=== PATIENT | female | born 1960 | race Caucasian/White ===

== ENCOUNTER 2020-09-01 12:21 | Emergency (ER) | payer BC, SELFPAY ==
[2020-09-01] VITALS (10 sets, daily range): BP systolic 123–206; BP diastolic 47–87; PULSE 62–82; RESP 14–20; TEMP 36.7; O2SAT 97–99; BMI 30.4
--- NOTE | 2020-09-01 12:30 | XR_ITS ---
WS: [id number] Portable AP upright chest, 09/01/2020 Clinical Data: cp Comparison: Portable chest, 09/26/2016. Findings: No nodules, masses or effusions are seen. The heart is normal. The pulmonary vascularity is not increased. No pneumonia or pneumothorax is seen. The aortic arch and descending aorta show tortu osity. Monitor leads are on the chest wall. XR/XR chest 1V portable [id number] Impression: Atherosclerosis.
--- NOTE | 2020-09-01 12:48 | W.ED.CHESTPA ---
HPI - Chest Pain General: Chief Complaint: Chest Pain Stated Complaint: cp Time Seen by Provider: 09/01/20 12:25 History of Present Illness: HPI narrative: The patient is a 59-year-old female with past medical history left carotid endarterectomy 4 years ago after having strokelike symptoms. Today she comes to the ER complaining of left-sided chest pain radiating to her neck and shoulder since 5 PM yesterday. She says it feels like a dull ache that is worse with exertion. She says she also had a stress test around 4 years ago which was normal. She chronically has left-sided neck pain over the scar where her endarterectomy was performed. MD complaint: chest pain Timing of current episode: constant Onset: during rest and during exertion Pain location: left chest Pain radiation: neck and left shoulder Severity: moderate Quality: dull Exacerbating factors: exertion Associated symptoms: Reports no associated symptoms; Deny abdominal pain, dyspnea or palpitations Review of Systems General: Reports: 10 or more systems reviewed and unremarkable except in HPI and below Const: Denies: fatigue Eyes: Denies: change in vision, blurry vision or eye redness ENMT: Denies: throat pain, swelling of lips/tongue, ear or mastoid pain or nasal congestion Card: Reports: chest pain; Denies: palpitations, irregular heart rhythm, edema, dyspnea on exertion or orthopnea Resp: Denies: dyspnea, productive cough or non-productive cough GI: Denies: abdominal pain, diarrhea or GI cramping : Denies: flank pain, difficulty voiding, urinary frequency or urinary urgency Musc: Denies: neck pain, back pain, extremity pain, joint pain, joint redness, limited range of motion or muscle weakness Skin/Breast: Denies: rash, pruritus, erythema, skin pain or skin tenderness Neuro: Denies: headache(s), numbness in extremities, weakness in extremities, sensory changes, difficulty walking, dizziness, confusion or Slurred speech present Psych: Denies: anxiety or depression Endo: Denies: polyuria All/Imm: Denies: urticaria, throat swelling or tongue swelling PFSH ED PFSH: Social History (Updated 09/01/20 @ 12:31 by Kevin Romo RN) Smoking and tobacco status: never smoked Alcohol intake: never Substance/Drug Use: never Physical Exam Const: COMMON NORMALS: no acute distress, average body habitus, patient oriented x3, no limitations, healthy appearing, alert and well nourished GENERAL APPEARANCE: cooperative, comfortable, well kempt and well developed ORIENTATION/CONSCIOUSNESS: Yes awake, Yes oriented to person, Yes oriented to place and Yes oriented to time HENMT: COMMON NORMALS: normocephalic, external ears normal and Normal external nose present HEAD & SCALP: normal to inspection and normocephalic NOSE: Normal external nose present EXTERNAL EAR: Yes external ears normal MOUTH: Normal oral and palatal mucosa present THROAT: posterior oropharynx normal Eye: COMMON NORMALS: Equal, round and reactive pupils present and EOMs intact bilaterally GENERAL EYE: appearance normal, both eyes and all related structures PUPIL: Yes Equal, round and reactive pupils present Neck/C-Spine: COMMON NORMALS: full ROM, no lymphadenopathy, no meningeal signs and no JVD GENERAL: Yes normal visual inspection Lymph: LYMPHATIC: no lymphadenopathy noted Chest: COMMONS NORMALS: normal inspection of the chest and normal palpation of entire chest wall Resp: COMMON NORMALS: normal respiratory effort, No retractions, No use of accessory muscles, clear to auscultation bilaterally and percussion normal EFFORT & INSPECTION: Yes able to speak in complete sentences AUSCULTATION: clear to auscultation bilaterally PERCUSSION: percussion normal Cardio: COMMON NORMALS: no JVD, regular rate, regular rhythm, S1 normal heart sound present, S2 normal heart sound present and Peripheral pulses 2+ throughout RATE: regular rate RHYTHM: regular rhythm HEART SOUNDS: S1 normal heart sound present and S2 normal heart sound present PERIPHERAL PULSES: Peripheral pulses 2+ throughout GI: COMMON NORMALS: Normal to inspection, nondistended, normoactive bowel sounds present, Soft to palpation, non-tender and no masses INSPECTION: Yes normal to inspection PALPATION: Yes Soft to palpation : COMMON NORMALS: Yes no CVA tenderness BLADDER/KIDNEY EXAM: Yes no CVA tenderness Back/Pelvis: COMMON NORMALS: no CVA tenderness, thoracic and lumbar spine normal to inspection, no thoracic nor lumbar tenderness and thoraco-lumbar ROM normal Extremity: COMMON NORMALS: normal to inspection, full ROM, capillary refill normal, no joint enlargement and no pedal edema GENERAL: Yes normal exam except as noted Neuro: COMMON NORMALS: patient oriented x3, CN's II-XII intact bilaterally, moves all extremities, no focal motor deficits, no sensory deficits noted and gait normal SENSORIUM/ORIENTATION: Yes alert, Yes oriented to person, Yes oriented to place and Yes oriented to time MENINGEAL SIGNS: Yes no meningeal signs Psych: COMMON NORMALS: mental status grossly normal, Normal thought process present, cooperative, normal affect and speech normal APPEARANCE: Yes well kempt ATTITUDE: Yes calm SPEECH: Yes normal speech THOUGHT PROCESS: Normal thought process present Skin: COMMON NORMALS: no rashes or lesions noted GENERAL SKIN EXAM: no rashes or lesions noted Course Vital Signs: Vital signs: Vital Signs Temperature 98.1 F 09/01/20 12:26 Pulse Rate 71 09/01/20 19:11 Respiratory Rate 16 09/01/20 19:11 Blood Pressure 137/47 09/01/20 19:11 Pulse Oximetry 98 09/01/20 19:11 MDM - Chest Pain MDM Narrative: Medical decision making narrative: Patient came to the ER complaining of left-sided chest pain since 5 PM yesterday. Initial and 2-hour troponin is normal as well as 2 EKGs normal. Her blood pressure was severely elevated and she was given clonidine to reduce it. Blood pressure went from 2/3 over 70-137/47. Her symptoms resolved. Discussed with Dr. Chau who agrees with plan of care for outpatient stress test. Return to ER with any worsening chest pain and we will admit her for stress. ER with worsening symptoms at any time. Primary care Friday and bring blood pressure diary with her. I have placed a case management referral to help her get a cardiology appointment. Lab Data: Labs: Lab Results 09/01/20 09/01/20 09/01/20 Range/Units 12:50 12:50 12:50 WBC 9.2 (4.0-10.0) 10^3/ uL RBC 5.29 (4.1-5.3) 10^6/u L Hgb 14.9 (11.5-15.3) g/dL Hct 46.9 (37.0-47.0) % MCV 88.7 (81-99) fL MCH 28.2 (28.0-34.0) pg MCHC 31.8 (30.0-36.0) g/dL RDW 13.8 (12.1-15.1) % Plt Count 201 (130-400) 10^3/c mm MPV 12.4 H (7.4-10.4) fL Neut % (Auto) 52.0 % Lymph % (Auto) 31.3 % [place] % (Auto) 8.3 % Eos % (Auto) 7.0 % Baso % (Auto) 1.1 % Neut # (Auto) 4.79 (1.8-7.7) 10^3/u L Lymph # (Auto) 2.9 (0.8-4.8) 10^3/u L [place] # (Auto) 0.8 (0.2-0.9) 10^3/u L Eos # (Auto) 0.7 (0.0-0.8) 10^3/u L Baso # (Auto) 0.1 (0.0-0.1) 10^3/u L Nucleated RBC % (a uto) 0 % Nucleated RBCs # 0.0 /100WBC D-Dimer Cancelled Sodium 141 (136-145) mmol/L Potassium 4.4 (3.5-5.1) mmol/L Chloride 106 (98-107) mmol/L Carbon Dioxide 27 (22-29) mmol/L Anion Gap 12.4 (5-19) BUN 11 (6-20) mg/dL Creatinine 0.6 (0.5-0.9) mg/dL GFR Calculation 102.7 (90-130) mL/min Glucose 97 (65-115) mg/dL Calculated Osmolal ity 291 (285-295) mOsm/k g Calcium 9.2 (8.5-10.5) mg/dL Total Bilirubin 0.3 (0.15-1.2) mg/dL AST 19 (0-32) U/L ALT 17 (0-33) U/L Alkaline Phosphata se 77 (35-105) IU/L Troponin T Baselin e Troponin T 120 Min [place] (0-10) ng/L Delta Troponin T (0-10) ABS# NT-Pro-B Natriuret Pep 122 (0-125) pg/mL Total Protein 6.8 (6.6-8.7) g/dL Albumin 4.3 (3.5-5.2) g/dL Globulin 2.5 (1.3-4.6) g/dL Urine Color (Yellow) Urine Appearance (CLEAR) Urine pH (5-7) Ur Specific Gravit y (1.005-1.030) Urine Protein (Negative) Urine Glucose (UA) (Normal) Urine Ketones (Negative) Urine Blood (Negative) Urine Nitrate (Negative) Urine Bilirubin (Negative) Urine Urobilinogen (Negative) mg/dL Ur Leukocyte Jes ase (Negative) Urine RBC (0-2) /hpf Urine WBC (0-5) /hpf Ur Squamous Epith Cells (0-5) /hpf Amorphous Sediment Urine Bacteria (NONE) /hpf 09/01/20 09/01/20 09/01/20 Range/Units 12:50 13:22 13:22 WBC (4.0-10.0) 10^3/ uL RBC (4.1-5.3) 10^6/u L Hgb (11.5-15.3) g/dL Hct (37.0-47.0) % MCV (81-99) fL MCH (28.0-34.0) pg MCHC (30.0-36.0) g/dL RDW (12.1-15.1) % Plt Count (130-400) 10^3/c mm MPV (7.4-10.4) fL Neut % (Auto) % Lymph % (Auto) % [place] % (Auto) % Eos % (Auto) % Baso % (Auto) % Neut # (Auto) (1.8-7.7) 10^3/u L Lymph # (Auto) (0.8-4.8) 10^3/u L [place] # (Auto) (0.2-0.9) 10^3/u L Eos # (Auto) (0.0-0.8) 10^3/u L Baso # (Auto) (0.0-0.1) 10^3/u L Nucleated RBC % (a uto) % Nucleated RBCs # /100WBC D-Dimer 0.95 H Sodium (136-145) mmol/L Potassium (3.5-5.1) mmol/L Chloride (98-107) mmol/L Carbon Dioxide (22-29) mmol/L Anion Gap (5-19) BUN (6-20) mg/dL Creatinine (0.5-0.9) mg/dL GFR Calculation (90-130) mL/min Glucose (65-115) mg/dL Calculated Osmolal ity (285-295) mOsm/k g Calcium (8.5-10.5) mg/dL Total Bilirubin (0.15-1.2) mg/dL AST (0-32) U/L ALT (0-33) U/L Alkaline Phosphata se (35-105) IU/L Troponin T Baselin e Cancelled 7 Troponin T 120 Min [place] (0-10) ng/L Delta Troponin T (0-10) ABS# NT-Pro-B Natriuret Pep (0-125) pg/mL Total Protein (6.6-8.7) g/dL Albumin (3.5-5.2) g/dL Globulin (1.3-4.6) g/dL Urine Color (Yellow) Urine Appearance (CLEAR) Urine pH (5-7) Ur Specific Gravit y (1.005-1.030) Urine Protein (Negative) Urine Glucose (UA) (Normal) Urine Ketones (Negative) Urine Blood (Negative) Urine Nitrate (Negative) Urine Bilirubin (Negative) Urine Urobilinogen (Negative) mg/dL Ur Leukocyte Jes ase (Negative) Urine RBC (0-2) /hpf Urine WBC (0-5) /hpf Ur Squamous Epith Cells (0-5) /hpf Amorphous Sediment Urine Bacteria (NONE) /hpf 09/01/20 09/01/20 Range/Units 13:45 16:02 WBC (4.0-10.0) 10^3/ uL RBC (4.1-5.3) 10^6/u L Hgb (11.5-15.3) g/dL Hct (37.0-47.0) % MCV (81-99) fL MCH (28.0-34.0) pg MCHC (30.0-36.0) g/dL RDW (12.1-15.1) % Plt Count (130-400) 10^3/c mm MPV (7.4-10.4) fL Neut % (Auto) % Lymph % (Auto) % [place] % (Auto) % Eos % (Auto) % Baso % (Auto) % Neut # (Auto) (1.8-7.7) 10^3/u L Lymph # (Auto) (0.8-4.8) 10^3/u L [place] # (Auto) (0.2-0.9) 10^3/u L Eos # (Auto) (0.0-0.8) 10^3/u L Baso # (Auto) (0.0-0.1) 10^3/u L Nucleated RBC % (a uto) % Nucleated RBCs # /100WBC D-Dimer Sodium (136-145) mmol/L Potassium (3.5-5.1) mmol/L Chloride (98-107) mmol/L Carbon Dioxide (22-29) mmol/L Anion Gap (5-19) BUN (6-20) mg/dL Creatinine (0.5-0.9) mg/dL GFR Calculation (90-130) mL/min Glucose (65-115) mg/dL Calculated Osmolal ity (285-295) mOsm/k g Calcium (8.5-10.5) mg/dL Total Bilirubin (0.15-1.2) mg/dL AST (0-32) U/L ALT (0-33) U/L Alkaline Phosphata se (35-105) IU/L Troponin T Baselin e Troponin T 120 Min [place] 6.00 (0-10) ng/L Delta Troponin T -1.00 L (0-10) ABS# NT-Pro-B Natriuret Pep (0-125) pg/mL Total Protein (6.6-8.7) g/dL Albumin (3.5-5.2) g/dL Globulin (1.3-4.6) g/dL Urine Color Straw (Yellow) Urine Appearance Sl hazy (CLEAR) Urine pH 5 (5-7) Ur Specific Gravit y 1.015 (1.005-1.030) Urine Protein Neg (Negative) Urine Glucose (UA) Norm (Normal) Urine Ketones Negative (Negative) Urine Blood 1+ H (Negative) Urine Nitrate Negative (Negative) Urine Bilirubin Neg (Negative) Urine Urobilinogen Norm (Negative) mg/dL Ur Leukocyte Jes ase 2+ H (Negative) Urine RBC 10-15 H (0-2) /hpf Urine WBC 15-25 H (0-5) /hpf Ur Squamous Epith Cells 15-25 H (0-5) /hpf Amorphous Sediment Not Reportable Urine Bacteria 1+ H (NONE) /hpf Discharge Plan Discharge Patient Disposition: Home Clinical Impression: Chest pain, UTI (urinary tract infection) Condition: Stable Prescriptions: New cephalexin 500 mg capsule 500 mg PO BID 7 Days Qty: 14 RF: 0 amlodipine 10 mg tablet 10 mg PO DAILY Qty: 20 RF: 0 No Action No Known Home Medications RF: 0 Discharge Orders: Discharge ED (Routine); Ordered 09/01/20 Ordered By: Juni Sosa Referrals: Alisson Lopez C UNIX DEVELOPER [Primary Care Provider] - Discharge Diet: Advance as tolerated Discharge Activity: Resume usual activity Patient Instructions: Chest Pain (ED), Urinary Tract Infection in Women (ED), Opioid Safety Activity Restrictions/Additional Instructions: You are now free from chest pain now that your blood pressure has been lowered. Please take the amlodipine and write a blood pressure diary and bring them to your primary care physician Friday. Return to the ER with any symptoms of chest pain and we will admit you for a stress test. I have placed a case management referral to help you get an appointment with a angle shear set up operator for stress test. Return to the ER at anytime with worsening symptoms Coding Level of Care Code ED Information Systems Specialist for Alyx Fwbrayan Exam Comprehensive
[2020-09-01] MEDS: aspirin 81 mg Chew Tablet 324 MG PO (12:57)
[2020-09-01 13:00] LABS: Basophils # 0.1 10^3/uL (0.0-0.1); Basophils % 1.1 %; Eosinophils # 0.7 10^3/uL (0.0-0.8); Hematocrit 46.9 % (37.0-47.0); Hemoglobin 14.9 g/dL (11.5-15.3); Lymphocytes # 2.9 10^3/uL (0.8-4.8); Lymphocytes % 31.3 %; Mean Corpuscular HGB Conc 31.8 g/dL (30.0-36.0); Mean Corpuscular Hemoglobin 28.2 pg (28.0-34.0); Mean Corpuscular Volume 88.7 fL (81-99); Mean Platelet Volume 12.4 fL (7.4-10.4); Monocytes # 0.8 10^3/uL (0.2-0.9); Monocytes % 8.3 %; Neutrophils # 4.79 10^3/uL (1.8-7.7); Nucleated Red Blood Cells % 0 %; Platelet Count 201 10^3/cmm (130-400); Red Blood Count 5.29 10^6/uL (4.1-5.3); Red Cell Distribution Width 13.8 % (12.1-15.1); White Blood Count 9.2 10^3/uL (4.0-10.0)
[2020-09-01] MEDS: nitroglycerin 0.4 mg sublingual Tablet SUBLINGUAL (13:01)
[2020-09-01 13:30] LABS: Alanine Aminotransferase 17 U/L (0-33); Albumin Level 4.3 g/dL (3.5-5.2); Alkaline Phosphatase 77 IU/L (35-105); Blood Urea Nitrogen 11 mg/dL (6-20); Calcium 9.2 mg/dL (8.5-10.5); Carbon Dioxide 27 mmol/L (22-29); Chloride 106 mmol/L (98-107); Globulin 2.5 g/dL (1.3-4.6); Glomerular Filtration Rate 102.7 mL/min (90-130); Glucose 97 mg/dL (65-115); NT Pro B Type Natriuretic Pept 122 pg/mL (0-125); Osmolality Calculated 291 mOsm/kg (285-295); Sodium 141 mmol/L (136-145); Total Bilirubin 0.3 mg/dL (0.15-1.2); Total Protein 6.8 g/dL (6.6-8.7)
[2020-09-01 13:39] LABS: Anion Gap 12.4 (5-19); Aspartate Amino Transferase 19 U/L (0-32); Potassium 4.4 mmol/L (3.5-5.1)
[2020-09-01 13:41] LABS: D Dimer 0.95 ug/mIFEU (0-0.59)
[2020-09-01 13:45] LABS: Troponin(5th) Baseline 7 ng/L (0-10)
[2020-09-01 14:01] LABS: Add Urine Culture? No; Add Urine Microscopic? YES; Bacteria Urine 1+ /hpf; Bilirubin Urine Neg (Negative); Blood Urine 1+ (Negative); Glucose Urine UA Norm (Normal); Ketones Urine Negative (Negative); Leukocyte Esterase Urine 2+ (Negative); Nitrate Urine Negative (Negative); Protein Urine Neg (Negative); Specific Gravity, Urine 1.015 (1.005-1.030); Squamous Epithelial Cell Urine 15-25 /hpf (0-5); Urine Appearance SL Hazy (CLEAR); Urine Color Straw (Yellow); Urobilinogen Urine Norm (Negative); WBC Urine 15-25 /hpf (0-5); pH Urine 5 (5-7)
--- NOTE | 2020-09-01 14:01 | CTR_ITS ---
PROCEDURE INFORMATION: Exam: CTA Chest With Contrast Exam date and time: 09/01/2020 2:09 PM Age: 59 years old Clinical indication: Pain and abnormal findings; Abnormal diagnostic tests; Elevated d-dimer; Left-sided chest pain; Prior surgery; Surgery type: Left carotid; Patient HX: Left sided chest pain radiating to left neck and shoulder; Additional info: Chest pain. Elevated d dimer TECHNIQUE: Imaging protocol: Computed tomographic angiography of the chest with contrast. 3D rendering (Not supervised by radiologist): MIP and/or 3D reconstructed images were created by the technologist. Radiation optimization: All CT scans at this facility use at least one of these dose optimization techniques: automated exposure control; mA and/or kV adjustment per patient size (includes targeted exams where dose is matched to clinical indication); or iterative reconstruction. Contrast material: OMNI 350; Contrast volume: 82 ml; Contrast route: INTRAVENOUS (IV); COMPARISON: CR XR chest 1V portable [id number] 09/01/2020 12:36 PM RADIATION DOSE METRICS: Total DLP (mGy-cm): 583.79 FINDINGS: Pulmonary arteries: No pulmonary embolus or aortic dissection. Aorta: Unremarkable. No aortic aneurysm. No aortic dissection. Lungs: Unremarkable. No consolidation. No masses. Pleural spaces: Unremarkable. No pneumothorax. No pleural effusion. Heart: Unremarkable. No cardiomegaly. No pericardial effusion. Lymph nodes: Calcified left hilar nodes and/or mediastinal nodes and/or lung granulomas consistent with old granulomatous disease. Liver: Single hepatic cyst measuring > 1.0 cm. Spleen: One or more accessory splenules. Bones/joints: Unremarkable. No acute fracture. Soft tissues: Unremarkable. Other findings: Examination is limited secondary to motion artifact. CT/CT angio chest PE protcl [id number] IMPRESSION: No pulmonary embolus or aortic dissection. Radiation Dose CTDIVOL = (mGy): DLP = 583.79 (mGy-cm)
[2020-09-01] MEDS: iohexol 350 mg/mL 100 mL Btl IV (14:16)
--- NOTE | 2020-09-01 14:30 | ECG_ITS ---
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 Measurements Intervals [place] Rate: 60 P: 74 OR: 151 QRS: 60 QRSD: 102 T: 78 QT: 411 QTc: 411 Interpretive Statements SINUS RHYTHM POSSIBLE RIGHT VENTRICULAR CONDUCTION DELAY [RSR (QR) IN V1/V2] NONSPECIFIC T-WAVE ABNORMALITY Compared to ECG 09/26/2016 04:53:19 T-wave abnormality now present Sinus bradycardia no longer present Electronically Signed On 09-01-2020 21:10:12 CDT by Smita Nayak M.D. [id number] f
[2020-09-01] MEDS: hyDRALAzine 20 mg/mL INJ 1 mL 10 MG IVP (16:14)
[2020-09-01] MEDS: cloNIDine 0.1 mg Tablet 0.2 MG PO (18:06)
--- NOTE | 2020-09-01 18:30 | ECG_ITS ---
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 Measurements Intervals [place] Rate: 64 P: 50 HI: 151 QRS: 10 QRSD: 97 T: 64 QT: 407 QTc: 422 Interpretive Statements SINUS RHYTHM POSSIBLE RIGHT VENTRICULAR CONDUCTION DELAY [RSR (QR) IN V1/V2] MODERATE ST DEPRESSION [0.05+ mV ST DEPRESSION] Compared to ECG 09/01/2020 14:44:25 ST (T wave) deviation now present T-wave abnormality no longer present Electronically Signed On 09-01-2020 21:10:27 CDT by Smita Nayak M.D. [email or web address]/[id number] f
[2020-09-01] MEDS: amlodipine 5 mg Tablet PO (19:49)
[2020-09-01] MEDS: cephALEXin 500 mg Capsule PO (19:49)
--- NOTE | 2020-09-04 15:06 | DCPLANNER ---
certified orthotist practice manager had message to schedule a follow up appointment for patient with heart care. certified orthotist practice manager called heart care, spoke with Maisha. certified orthotist practice manager gave clinic patients information, a follow up appointment was scheduled for August at 1:[address] Chavez. certified orthotist practice manager called patient, spoke with patients , gave him the appointment information.
--- NOTE | 2020-11-22 07:45 | DCPLANNER ---
Patient had a follow up appointment scheduled for 09.14.[address] Chau at [facility] - patient did attend appointment.
== END 2020-09-01 19:52 | disposition home or self-care (01) ==
PROVIDERS: Emergency Provider Family Medicine; PCP Nurse Practitioner
DX: R07.9 Chest pain, unspecified (principal); N39.0 Urinary tract infection, site not specified
CPT/HCPCS: 36415; 71045; 71275; 80053; 81001; 83880; 84484; 85025; 85378; 93005; 96374; 99284; J0360; Q9967

== ENCOUNTER 2020-10-18 09:08 | Outpatient (CLI) | payer BC, SELFPAY ==
--- NOTE | 2020-10-18 09:30 | USCV_ITS ---
Juanis Patel Age: 59 Gender: F : 1960 Exam Date: 10/18/2020 09:53 Ordering Phys: Nona Chau MD ([email or web address]) Technologist: Exam Location[place] [facility] [place]: HISTORY: varicose veins PROCEDURES: Bilateral duplex Venous Insufficiency study of the Deep and Superficial systems was carried out according to normal protocol with the patient in supine positon for deep system and dependent position for the superficial system. FINDINGS: All deep veins demonstrated compressibility without evidence of intraluminal thrombus or increased echogenicity. Spectral analysis of Doppler signals demonstrates normal response to compression maneuvers indicating patency without obstruction. Reflux determinations were made with the patient in the dependent position, the weight being on the contralateral leg. significant reflux in right GSV system. Please consult with ladle liner before scheduling for ablation due to small diameter vessels. CONCLUSIONS 1. No evidence of DVT in the above-mentioned identifiable veins. 2. Significant venous reflux of greater than 500 ms were noted at the right distal and below-knee greater saphenous vein segments. The venous segments at these levels were found to be 0.5 and 0.4 cm in diameter and at a depth of greater than 1 cm from the surface. 3. No significant venous reflux were noted on the left side. Dr Smita Nayak MD [facility] (Electronically Signed) Final Date: 19 October 2020 08:44 S
== END 2020-10-18 09:09 | disposition home or self-care (01) ==
LOC: RAD 09:12
PROVIDERS: PCP Nurse Practitioner; Visit Provider Internal Medicine Cardiovascular Disease
DX: I87.2 Venous insufficiency (chronic) (peripheral) (principal); I83.93 Asymptomatic varicose veins of bilateral lower extremities
CPT/HCPCS: 93970

== ENCOUNTER 2020-10-31 08:09 | Outpatient (CLI) | payer BC, SELFPAY ==
[2020-10-31 08:31] VITALS: BMI 29.6
--- NOTE | 2020-10-31 08:32 | NMCV_ITS ---
NM adri perf SPECT r/s* [id number] Juanis Patel Age: 59 Gender: F : 1960 Exam Date: 10/31/2020 09:33 Ordering Phys: Nona hCau MD ([email or web address]) Technologist: PROMISE Engel Exam Location: [facility] Indications: CHEST PAIN STRESS TEST [facility] IMAGE PROTOCOL Rest/Stress 1 Exercise Day Radiopharmaceutical Dose (mCi) Administration Site Administered by Rest: Tc-99m 10.8 IV PROMISE Azar Sestamibi Stress:Tc-99m 32.3 IV PROMISE Azar Sestamibi Rest: 31-Oct-2020 60 Discovery 630 Stress: 31-Oct-2020 15 Discovery 630 Radiopharmaceutical was injected at 85 % maximum heart rate. Images obtained in supine and prone position. SPECT RESULTS Technical Quality: Excellent Raw Data Analysis: Normal Image Corrections: No attenuation or motion correction applied Summed Stress Score: 0 Summed Rest Score: 0 Summed Difference Score: 0 PERFUSION FINDINGS Very small sized perfusion abnormality of mild severity of apical lateral wall with improved tracer uptake on stress images. FUNCTIONAL RESULTS (calculated via Gated SPECT) Stress Image LV EF (%): 86 Stress EDV (mL):83 TID: 0.89 Stress ESV (mL):12 FUNCTIONAL FINDINGS: The left ventricle is normal in size. Transient Ischemia Dilatation of 0.89. There is hyperdynamic left ventricular systolic function, LVEF=86%. This is likely overestimated due to small left ventricle cavity. There is normal left ventricular wall thickening with no regional wall motion abnormality. Normal end-diastolic end-systolic volumes IMPRESSIONS 1. Myocardial perfusion imaging is normal. Attenuation artifact noted in apical lateral wall. 2. Overall left ventricular systolic function is normal without regional wall motion abnormalities. 3. There is hyperdynamic left ventricular systolic function, LVEF=86%. 4. Positive EKG response to treadmill exercise. Refer to separate report for details. 5. No prior similar studies to compare. Nona Chau MD (Electronically Signed) Final Date: 03 November 2020 18:30 S
--- NOTE | 2020-10-31 08:32 | ECG_ITS ---
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 Interpretive Statements NAME OF STUDY: EXERCISE SESTAMIBI STRESS TEST INDICATION: Chest Pain Baseline blood pressure of 150/82 mm Hg, heart rate 58 beats per minute and oxygen saturation of 94%. EKG showed normal sinus rhythm, normal axis with nonspecific ST depression. The patient exercised for 5 minutes 1 second on a standard Thony protocol. Patient attained a maximum heart rate of 148 beats per minute(91% of the maximum predicted heart rate) with a blood pressure at the peak exercise of 238/95 mm Hg. EKG 2 minutes 30 seconds into exercise showed 1 to [address] depression in inferolateral leads (lead II, 3, aVF, V3 to V6) and [address] elevation in lead V1 and aVR. The EKG at the peak exercise revealed sinus tachycardia with 2-2 and half mm horizontal to downsloping ST depression in inferolateral leads and [address] elevation in V1 and aVR. Patient developed shortness of breath 2 minutes 30 seconds (stage I) into exercise and chest pain 4 minutes 30 seconds (stage II) into exercise. During the recovery phase, [address] depression persisted late in recovery in the lead II, 3, aVF V4 to V6. Blood pressure at the end of the recovery phase was 167/83 mm Hg with a heart rate of 88 beats per minute and oxygen saturation of 98%. CONCLUSION: 1. Positive EKG response to treadmill exercise. 2 to 1/2 mm horizontal to downsloping ST depression in inferolateral leads. 2. No exercise-induced chest pain or cardiac arrhythmia 3. Good exercise tolerance, attained a maximum of 7 METs. Maximum VO2 of 24.5 mL/kg/min. 4. Baseline hypertension with normal response to exercise. 5. Perfusion scan will be documented separately. Electronically Signed On 11-03-2020 18:24:09 CDT by Nona Chau M.D. [email or web address]/store/[id number]
[2020-10-31 11:10] VITALS: BP 149/83; PULSE 88
== END 2020-10-31 08:10 | disposition home or self-care (01) ==
LOC: CDL 08:11
PROVIDERS: PCP Nurse Practitioner; Visit Provider Internal Medicine Cardiovascular Disease
DX: R07.9 Chest pain, unspecified (principal); I10 Essential (primary) hypertension
CPT/HCPCS: 78452; 93017; A9500

== ENCOUNTER → 2021-02-01 09:19 | Outpatient (BNVA) | payer BC, SELFPAY | PROVIDERS: PCP Nurse Practitioner; Referring Provider Internal Medicine Cardiovascular Disease; Visit Provider Internal Medicine Cardiovascular Disease | DX: Z01.818 Encounter for other preprocedural examination (principal); R94.39 Abnormal result of other cardiovascular function study; Z20.822 Contact with and (suspected) exposure to COVID-19 | CPT/HCPCS: 80048; 85025; 85610; 87635 ==

== ENCOUNTER 2021-02-06 07:36 | Outpatient (CLI) | payer BC, SELFPAY ==
[2021-02-06] VITALS (11 sets, daily range): BP systolic 122–173; BP diastolic 70–104; PULSE 57–70; RESP 15–20; TEMP 36.8; O2SAT 94–98; BMI 33.0
--- NOTE | 2021-02-06 08:00 | XACV_ITS ---
Ht: 173 cm Wt: 98 kg BSA: 2.21 m2 Gender: Female : 1960 Any Known Allergies: No known allergies Exam Priority: Routine Procedure(s): Procedure Description: Diagnostic procedure Procedure Description: Left Heart Catheterization Procedure Description: Left ventriculography Procedure Description: Coronary Angiography Diagnostic Cath Status: Elective Diagnostic Findings * No disease noted in the Left Main, Left Anterior Descending, Right, or Circumflex coronary arteries. * Coronary angiography shows right dominance. Conclusions 1. No disease noted in the Left Main, Left Anterior Descending, Right, or Circumflex coronary arteries. Recommendations * Continue current medical management and risk factor modification. Ventriculography Ejection Fraction: 65.0 % Left Ventriculography Findings: * Normal left ventricular ejection fraction 65%. Pressures Phase:Rest AO : 150 / 80 ( 106 ) @ 8:43:00 AM 149 / 71 ( 103 ) @ 8:48:00 AM 134 / 74 ( 99 ) @ 8:51:00 AM 151 / 71 ( 103 ) @ 8:58:00 AM 151 / 71 ( 104 ) @ 8:58:00 AM LV : 171 / -8 / 19 @ 8:57:00 AM 165 / 30 / 51 @ 8:58:00 AM 165 / 8 / 26 @ 8:58:00 AM Valves Phase:DefaultPhase AV : 13.0 @ 10:06:14 AM AV Mean Gradient: 17.0 @ 10:06:14 AM Clinical Evaluation EBL: 5mL-10mL Procedural Details Procedure Consent Obtained. Pre-Procedure Time Out. Identified patient by full name and date of as verbalized by the patient/guarantor. Does the consent match the physician's order: Yes. Accurate & Complete Informed Consent: Yes. Inpatient/Outpatient History & Physical on Chart: Yes. If H&P is completed, is and addenduem needed: No; If yes, is the addendum complete: N/A. Visualize and Verify Site with Patient/Guarantor: N/A. Relevant Radiology Images available: N/A. Pre-op teaching completed and patient verbalized understanding. The risks, benefits, and alternatives of sedation and/or procedure were discussed by physician. The patient agrees to continue. Procedure started. [facility] Clinical Fraility Score: 3: Managing Well. Tree Wrapper Indications: Other abnormal stress test. Chest Pain Symptom Assessment: Typical Angina Symptoms. Cardiovascular Instability: No. Correct patient, site and procedure confirmed by cath team. PERRLA. Strong, equal hand medical professionals bilaterally. Lungs clear x 5 lobes. IV Site on Arrival: 20 gauge in the right anticubital. IV Fluids: 0.9% NaCl at KVO. 0 mL infused prior to quality assurance qa lab analyst. Pre Procedural Pulses: bilateral dorsalis pedis was 3+. Pre Procedural Pulses: bilateral posterior tibial was 1+. Pre Procedural Pulses: bilateral radial was 3+. Oxygen started at 2liters/min via nasal canula. Baseline sample Acquired. HR: 60 BPM. right radial was prepped with chloroprep then draped in the usual sterile fashion. right groin was prepped with chloroprep then draped in the usual sterile fashion. Physician arrived. Equipment: 6F - Radial. Physician scrubbed in. Immediate Pre-Procedure Time Out. Correct Patient: Yes; Correct Procedure: Yes; Correct Site: Yes; Correct Patient Position: Yes; Correct Supplies: Yes; Dried Flammable Prep: Yes; Blood Products Available: N/A;. Lidocaine 1% infiltrated to the right radial. Arterial access obtained. A 5 palestinian TIG catheter in over wire. Multiple views taken of left coronary artery. Catheter redirected to the RCA. Multiple views taken of right coronary artery. Catheter removed over the exchange wire. A 5 palestinian Angled Pig catheter in over wire. EDP Sample taken: LV 171/-9,19; HR: 58 BPM; SpO2: 99%. LV gram performed in GARCIA @ 10 mL/second for a total of 30 mL. EDP Sample taken: LV 165/30,51; HR: 58 BPM; SpO2: 99%. Pullback taken: LV 165/8,26; AO 151/71(103); Mean: 17mmHg, Peak to Peak: 13mmHg, SEP: 18sec/min; HR: 55 BPM; SpO2: 99%. Catheter removed over the exchange wire. Physician scrubbed out. A TR Band was successful obtaining hemostatsis at the Right Radial artery insertion site. TR band placed. Hemostasis obtained. Post Procedure: Pulses reassessed and unchanged. PERRLA. Strong, equal hand medical professionals bilaterally. No VTE prophylaxis required. Medication's Wasted: Lidocaine 1% = 10 mL. Medication's Wasted: Nitro = 49.8 mg. Medication's Wasted: Heparin = 1000 units. Medication's Wasted: Other = fentanyl 50 mcg. Total IV fluids: 40 mL. Contrast type used: Omnipaque 300 mgI/mL, 500 mL bottle. Post-op diagnosis: normal coronaries. Complications: none. Estimated blood loss: 5mL-10mL. Procedure completed. Patient transferred by wheelchair to CPRU. Vital chart was stopped. Access Site Site: Right Radial artery Sheath Size: 6 Fr Hemostasis Method: TR Band Hemostasis Success: Successful Procedure Medications Start: 9:31 AM Stop: 9:31 AM Medication: Versed Amount: 1 mg Route: I.V. Start: 9:31 AM Stop: 9:31 AM Medication: Fentanyl Amount: 50 mcg Route: I.V. Start: 9:40 AM Stop: 9:40 AM Medication: Nitrogylcerin Amount: 200 mcg Route: I.A. Start: 9:41 AM Stop: 9:41 AM Medication: Versed Amount: 1 mg Route: I.V. Start: 9:43 AM Stop: 9:43 AM Medication: Heparin Amount: 5000 units Route: I.V. I, the attending physician, have reviewed and verified all procedure medications. Yes, all medications given per verbal order History/Risk Factors Hypertension: Yes Dyslipidemia: No Peripheral Arterial Disease (PAD): No Myocardial Infarction (CT): No Obesity: No Renal Disease: No Tobacco Use: Never Prior Interventions PCI: Yes CABG: No Valve Surgery: No Report Signatures Finalized by Elyssa Yates MD on 02/19/2021 06:56 PM
[2021-02-06] MEDS: diphenhydrAMINE 50 mg Capsule PO (08:22)
--- NOTE | 2021-02-06 09:23 | P.HP_ITS ---
Same Day Surgery H&P Indication for Procedure/HPI DATE OF PROCEDURE: February 06, 2021 CHIEF COMPLAINT/INDICATIONFOR SURGICAL PROCEDURE: Chest pain with abnormal stress test PREOP DIAGNOSIS: Chest pain with abnormal stress test PLANNED PROCEDRUE: Operation Date: 02/06/21 08:30 Proposed Procedures p Cardiac Catheterization(Left) - Elyssa Yates MD 60-year-old female past medical history significant for hypertension hyperlipidemia for chest pain radiating to left arm underwent exercise nuclear stress test nuclear portion of stress test was not suggestive of ischemia however EKG segment showed to have millimeter ST depression in the inferolateral leads. Since she has equivocal stress test and because of the fact she co ntinues to have symptoms Dr. Chau her printed circuit designer recommended to further assess patient with left heart cath. We agree with recommendation. It is the reason she is here today. Patient is a Denominational therefore she refused any transfusion. I have detailed discussion with the patient regarding all risk benefit and alternative for the procedure she understand the risks for major minor bleed hematoma infection bruising arrhythmia stroke urgent emergent bypass surgery vascular surgery and vascular scenario . She would like to proceed with it. Patient is already taking clopidogrel. She is a good candidate for dual antiplatelet therapy. She denies any bleeding per rectum or hematemesis. Medications/Allergies* Home Medications Medication Instructions Recorded Confirmed Type multivitamin 1 tab PO DAILY 09/14/20 02/05/21 History clonidine HCl 0.1 mg tablet 0.1 mg PO BID PRN 11/14/20 02/05/21 History Allergies/Adverse Reactions Allergy/AdvReac Type Severity Reaction Status Date / Time No Known Allergies Allergy Verified 11/29/20 10:15 Current Medications: Generic Name Dose Route Start Last Admin Trade Name Freq PRN Reason Stop Dose Admin Sodium Chloride 1,000 mls @ 50 mls/hr 02/06/21 08:00 02/06/21 08:22 Sodium Chloride 0.9% IV 02/07/21 03:59 Not Given .Q20H ONE Pertinent History/Comorbid Conditions* Medical History (Updated 11/14/20 @ 22:14 by Nona Chau MD) Carotid artery stenosis, asymptomatic HTN (hypertension) Surgical History (Updated 09/14/20 @ 14:18 by Nona Chau MD) H/O carotid endarterectomy Status post cervical polyp removal Family History (Updated 09/14/20 @ 13:58 by Johnna Davis RN) Diabetes Sister CAD (coronary artery disease) Mother Family/Other Cancer Stroke Father Brother Social History Smoking and tobacco status: never smoked Second hand smoke exposure: No Alcohol intake: never Desire information about alcohol rehabilitation?: No Desire information about substance/drug rehabilitation?: No Pertinent Exam Findings alert, oriented x 3, clear to auscultation bilaterally and operative site marked Conscious Sedation Assessment AIRWAY EVAL/ANESTHESIA PLAN: ASA II, Risks, benefits & alternatives of sedation and/or procedure discussed and Patient agrees to continue as planned Recommendations Surgery/Procedure today Coding Level of Care Code Acute Demonstrator [employer]iances for Alyx Khanna
--- NOTE | 2021-02-06 10:00 | PC.NURSE ---
recovery recvd pt from cardiac cath lab radiology technologist post diagnostic only [facility]. pt complains of no pain. pt alert and oriented x3. tr band in place with distal pulse palpable. pt educated on restrictions of right wrist with sister at bedside. will continue to educate throughout recovery. both acknowledged understanding. pt placed on pvc monitor and will be monitored per protocol.
== END 2021-02-06 12:55 | disposition home or self-care (01) ==
PROVIDERS: PCP Nurse Practitioner; Visit Provider Internal Medicine Cardiovascular Disease
DX: R07.9 Chest pain, unspecified (principal); R94.39 Abnormal result of other cardiovascular function study; I10 Essential (primary) hypertension; E78.5 Hyperlipidemia, unspecified; Z82.49 Family history of ischemic heart disease and other diseases of the circulatory system; Z82.3 Family history of stroke
CPT/HCPCS: 36415; 93452; C1769; C1887; C1894; J1644; J2250; J3010; J3490; J7030; Q0163; Q9967

== ENCOUNTER → 2021-02-14 14:44 | Outpatient (BNVA) | payer BC, SELFPAY | PROVIDERS: PCP Nurse Practitioner; Visit Provider Internal Medicine Cardiovascular Disease | DX: I65.29 Occlusion and stenosis of unspecified carotid artery (principal); I10 Essential (primary) hypertension; E78.5 Hyperlipidemia, unspecified | CPT/HCPCS: 80048; 80061; 80076 ==

== ENCOUNTER 2021-10-25 12:59 | Emergency (ER) | payer OTHER, SELFPAY ==
[2021-10-25 13:13] VITALS: BP 198/88; PULSE 75; RESP 16; TEMP 36.7; O2SAT 98; BMI 28.7
--- NOTE | 2021-10-25 13:28 | CTR_ITS ---
PROCEDURE INFORMATION: Exam: CT Head Without Contrast Exam date and time: 10/25/2021 3:17 PM Age: 60 years old Clinical indication: Weakness, facial and other: Left side facial droop x 4 days; Additional info: TIA vs missed stroke TECHNIQUE: Imaging protocol: Computed tomography of the head without contrast. Radiation optimization: All CT scans at this facility use at least one of these dose optimization techniques: automated exposure control; mA and/or kV adjustment per patient size (includes targeted exams where dose is matched to clinical indication); or iterative reconstruction. COMPARISON: CTA Neck [id number] 10/04/2016 1:11 PM RADIATION DOSE METRICS: Total DLP (mGy-cm): 849.96 FINDINGS: Brain: There is no evidence of infarct, reyna-white matter differentiation is preserved. There is no hemorrhage or extra-axial collection. There is no mass. Cerebral ventricles: There is no hydrocephalus. Paranasal sinuses: There is a small sphenoid sinus retention. No air-fluid levels. Mastoid air cells: Visualized mastoid air cells are well aerated. Bones/joints: Unremarkable. No acute fracture. Soft tissues: Unremarkable. CT/CT head wo con* [id number] IMPRESSION: No intracranial lesion or injury
--- NOTE | 2021-10-25 13:36 | ECG_ITS ---
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 Measurements Intervals [place] Rate: 73 P: 46 WI: 145 QRS: 29 QRSD: 105 T: 72 QT: 294 QTc: 325 Interpretive Statements SINUS RHYTHM LEFT ATRIAL ENLARGEMENT [-0.15mV P-WAVE IN V1/V2] NONSPECIFIC ST & T-WAVE ABNORMALITY Compared to ECG 09/01/2020 19:10:42 Atrial abnormality now present T-wave abnormality now present ST (T wave) deviation no longer present Electronically Signed On 10-26-2021 17:02:00 CDT by Carlos Rooney M.D. [id number] f
--- NOTE | 2021-10-25 14:14 | ED_ITS ---
HPI - Weakness General: Chief complaint: Weakness Stated complaint: left side numbness Time Seen by Provider: 10/25/21 14:13 History of Present Illness: 60-year-old female presents emergency room with complaint of left-sided is on her face and arms with some blurred vision began 3 to 4 days ago. No chest pain or pressure. She has had some headaches and some blurred vision as well. Blood pressure has been elevated. Initially began with some pain in the left ear and then it moved forward. Patient also noted that she developed abnormal taste and tearing of the left eye difficulty closing the eye. Complaint: focal weakness Onset (ago): day(s) (3-4) Location: face (Left side) Migration: none Severity: mild Quality: tingling Relieving factors: none Exacerbating factors: none Associated symptoms: Reports headache(s); Denies chest pain, chills, confusion, melena, decreased appetite, diaphoresis, dysuria, easy bruising, fever(s), myalgias, nausea, short of breath, syncope or vomiting Review of Systems Const: Denies: fever(s), chills or diaphoresis Eyes: Reports: blurry vision and increased production of tears (Left eye only) ENMT: Denies: throat pain, ear or mastoid pain, nasal discharge or nasal congestion Card: Denies: chest pain or syncope Resp: Denies: dyspnea, productive cough or non-productive cough GI: Denies: abdominal pain, nausea, vomiting or melena : Denies: flank pain, difficulty voiding, dysuria, urinary frequency or urinary urgency Musc: Denies: neck pain Skin/Breast: Denies: rash or pruritus Neuro: Reports: headache(s); Denies: confusion Roscoe/Lymph: Denies: easy bruising PFS ED PFSH: Medical History Carotid artery stenosis, asymptomatic Dyslipidemia HTN (hypertension) Surgical History H/O carotid endarterectomy Status post cervical polyp removal Family History Mother CAD (coronary artery disease) Father Stroke Family/Other CAD (coronary artery disease) Brother Stroke Sister Diabetes Other Cancer Social History Smoking and tobacco status: former smoker Second hand smoke exposure: No Alcohol intake: never Desire information about alcohol rehabilitation?: No Desire information about substance/drug rehabilitation?: No Physical Exam Const: COMMON NORMALS: no acute distress GENERAL APPEARANCE: cooperative and comfortable ORIENTATION/CONSCIOUSNESS: Yes awake, Yes oriented to person, Yes oriented to place and Yes oriented to time HENMT: COMMON NORMALS: normocephalic, atraumatic, hearing grossly normal bilaterally, external ears normal, EAC's normal, TM's normal bilaterally, Normal nasal mucous membranes and turbinates present, moist oral mucous membranes and oropharynx normal HEAD & SCALP: normocephalic and atraumatic NOSE: Normal nasal mucous membranes and turbinates present EXTERNAL EAR: Yes external ears normal EXTERNAL AUDITORY CANAL: EAC's normal TYMPANIC MEMBRANE: TM's normal bilaterally Eye: COMMON NORMALS: Equal, round and reactive pupils present, EOMs intact bilaterally, conjunctivae normal and no scleral icterus CONJUNCTIVA: Yes conjunctivae normal PUPIL: Yes Equal, round and reactive pupils present Neck/C-Spine: COMMON NORMALS: full ROM, no lymphadenopathy, supple and no JVD Lymph: LYMPHATIC: no lymphadenopathy noted and no lymphedema noted Resp: COMMON NORMALS: normal respiratory effort, No retractions, No use of acc essory muscles and clear to auscultation bilaterally AUSCULTATION: clear to auscultation bilaterally Cardio: COMMON NORMALS: no JVD, regular rate, regular rhythm and No murmurs present (Cardio) RATE: regular rate RHYTHM: regular rhythm Extremity: COMMON NORMALS: normal to inspection, capillary refill normal, no clubbing, cyanosis or edema, no calf tenderness and no pedal edema Neuro: SENSORIUM/ORIENTATION: Yes oriented to person, Yes oriented to place a nd Yes oriented to time Skin: COMMON NORMALS: no rashes or lesions noted GENERAL SKIN EXAM: no rashes or lesions noted Course Vital Signs: Vital signs: Vital Signs Temperature 98.1 F 10/25/21 13:13 Pulse Rate 85 10/25/21 17:09 Respiratory Rate 16 10/25/21 13:13 Blood Pressure 186/77 10/25/21 17:09 Pulse Oximetry 97 10/25/21 17:09 MDM - Weakness Medical Decision Making Patient is a very mild Figueroa's palsy. Discussed with Dr. Ragsdale and reviewed the presentation she concurs she is as a normal CT. Recommend follow-up with primary care and neurology. Patient is requesting MRI I discussed with her that there is really no indication at this point. Discussed with Dr. Ragsdale she had agreed it was Figueroa's palsy. I gave her the usual instructions and also encouraged her to follow-up primary care if symptoms change or worsen at all she can return. Medical Records I reviewed the patient's medical records. Lab Data I reviewed the patient's lab results. : 10/25/21 14:35 10/25/21 14:[address] 10/25/21 13:28 IMPRESSION: No intracranial lesion or injury Laboratory Results WBC 13.6 10^3/uL (4.0-10.0) H 10/25/21 14:35 RBC 5.51 10^6/uL (4.1-5.3) H 10/25/21 14:35 Hgb 15.6 g/dL (11.5-15.3) H 10/25/21 14:35 Hct 47.9 % (37.0-47.0) H 10/25/21 14:35 MCV 86.9 fl (81-99) 10/25/21 14:35 MCH 28.3 pg (28.0-34.0) 10/25/21 14:35 MCHC 32.6 g/dL (30.0-36.0) 10/25/21 14:35 RDW 13.4 % (12.1-15.1) 10/25/21 14:35 Plt Count 251 10^3/cmm (130-400) 10/25/21 14:35 MPV 12.7 fL (7.4-10.4) H 10/25/21 14:35 Neut % (Auto) 73.0 % 10/25/21 14:35 Lymph % (Auto) 17.0 % 10/25/21 14:35 Mcpherson % (Auto) 7.6 % 10/25/21 14:35 Eos % (Auto) 1.3 % 10/25/21 14:35 Baso % (Auto) 0.6 % 10/25/21 14:35 Neut # (Auto) 9.89 10^3/uL (1.8-7.7) H 10/25/21 14:35 Lymph # (Auto) 2.3 10^3/uL (0.8-4.8) 10/25/21 14:35 Mcpherson # (Auto) 1.0 10^3/uL (0.2-0.9) H 10/25/21 14:35 Eos # (Auto) 0.2 10^3/uL (0.0-0.8) 10/25/21 14:35 Baso # (Auto) 0.1 10^3/uL (0.0-0.1) 10/25/21 14:35 Nucleated RBC % (auto) 0 % 10/25/21 14:35 Nucleated RBCs # 0.0 /100WBC 10/25/21 14:35 PT 12.10 SECONDS (12.1-14.9) 10/25/21 15:28 INR 0.87 (0.8-1.2) 10/25/21 15:28 APTT 25.6 SECONDS (23.9-36.7) 10/25/21 15:28 Sodium 142 mmol/L (136-145) 10/25/21 14:35 Potassium 3.7 mmol/L (3.5-5.1) 10/25/21 14:35 Chloride 102 mmol/L (98-107) 10/25/21 14:35 Carbon Dioxide 28 mmol/L (22-29) 10/25/21 14:35 Anion Gap 15.7 (5-19) 10/25/21 14:35 BUN 14 mg/dL (6-20) 10/25/21 14:35 Creatinine 0.6 mg/dL (0.5-0.9) 10/25/21 14:35 GFR Calculation 102.3 mL/min (90-130) 10/25/21 14:35 Glucose 101 mg/dL (65-115) 10/25/21 14:35 Calculated Osmolality 295 mOsm/kg (285-295) 10/25/21 14:35 Calcium 10.5 mg/dL (8.5-10.5) 10/25/21 14:35 Total Bilirubin 0.3 mg/dL (0.15-1.2) 10/25/21 14:35 AST 19 U/L (0-32) 10/25/21 14:35 ALT 24 U/L (0-33) 10/25/21 14:35 Alkaline Phosphatase 98 IU/L (35-105) 10/25/21 14:35 Total Protein 8.5 g/dL (6.6-8.7) 10/25/21 14:35 Albumin 4.6 g/dL (3.5-5.2) 10/25/21 14:35 Globulin 3.9 g/dL (1.3-4.6) 10/25/21 14:35 Discharge Plan Discharge Patient Disposition: Home Clinical Impression: Figueroa's palsy Condition: Stable Prescriptions: No Action clonidine HCl 0.1 mg tablet 0.1 mg PO BID PRN (Reason: hypertensive emergency) 0RF atorvastatin 10 mg tablet 10 mg PO DAILY Qty: 90 1RF clopidogrel 75 mg tablet 75 mg PO DAILY Qty: 7 0RF Rx Instructions: TAKE 4 TABS PM BEFORE PROCEDURE AND 1 TAB AM OF PROCEDURE multivitamin Tablet 1 tab PO DAILY 0RF hydrochlorothiazide 12.5 mg tablet 12.5 mg PO DAILY Qty: 30 3RF aspirin [Kelsy Chewable Aspirin] 81 mg tablet,chewable 81 mg PO DAILY Qty: 30 0RF amlodipine 10 mg tablet 10 mg PO DAILY Qty: 30 3RF acyclovir 400 mg tablet 800 mg PO BID 0RF Discharge Orders: Discharge ED (Routine); Ordered 10/25/21 Ordered By: Bill Curtis Referrals: Alisson Lopez FIGHTING VEHICLE SYSTEMS MAINTAINER [Primary Care Provider] - Discharge Diet: Usual diet Discharge Activity: Increase activity as tolerated Patient Instructions: Figueroa Palsy (ED), Opioid Safety Coding Level of Care Code ED Tea Bag Packer for Alyx Khanna NIH stroke score NIHSS Level Of Consciousness - 1a: 0 Level Of Consciousness Questions - 1b: Both Correct Level Of Consciousness Commands - 1c: Both Correct Best Gaze - 2: Normal Visual Kapadia - 3: No Visual Loss Facial Palsy - 4: Minor Paralysis Motor Arm Right - 5: No Drift Motor Arm Left - 5: No Drift Motor Leg Right - 6: No Drift Motor Leg Left - 6: No Drift Limb Ataxia - 7: Absent Sensory - 8: Mild To Moderate Loss Best Language - 9: No Aphasia Dysarthia - 10: Normal Extinction And Inattention - 11: 0 Score Total Score: 2
[2021-10-25 14:57] LABS: Basophils # 0.1 10^3/uL (0.0-0.1); Basophils % 0.6 %; Eosinophils # 0.2 10^3/uL (0.0-0.8); Eosinophils % 1.3 %; Hematocrit 47.9 % (37.0-47.0); Hemoglobin 15.6 g/dL (11.5-15.3); Lymphocytes # 2.3 10^3/uL (0.8-4.8); Mean Corpuscular HGB Conc 32.6 g/dL (30.0-36.0); Mean Corpuscular Hemoglobin 28.3 pg (28.0-34.0); Mean Corpuscular Volume 86.9 fl (81-99); Mean Platelet Volume 12.7 fL (7.4-10.4); Monocytes % 7.6 %; Neutrophils # 9.89 10^3/uL (1.8-7.7); Nucleated Red Blood Cells % 0 %; Platelet Count 251 10^3/cmm (130-400); Red Blood Count 5.51 10^6/uL (4.1-5.3); Red Cell Distribution Width 13.4 % (12.1-15.1); White Blood Count 13.6 10^3/uL (4.0-10.0)
[2021-10-25 15:25] LABS: Alanine Aminotransferase 24 U/L (0-33); Albumin Level 4.6 g/dL (3.5-5.2); Alkaline Phosphatase 98 IU/L (35-105); Anion Gap 15.7 (5-19); Aspartate Amino Transferase 19 U/L (0-32); Blood Urea Nitrogen 14 mg/dL (6-20); Calcium 10.5 mg/dL (8.5-10.5); Carbon Dioxide 28 mmol/L (22-29); Chloride 102 mmol/L (98-107); Globulin 3.9 g/dL (1.3-4.6); Glomerular Filtration Rate 102.3 mL/min (90-130); Glucose 101 mg/dL (65-115); Osmolality Calculated 295 mOsm/kg (285-295); Potassium 3.7 mmol/L (3.5-5.1); Sodium 142 mmol/L (136-145); Total Bilirubin 0.3 mg/dL (0.15-1.2); Total Protein 8.5 g/dL (6.6-8.7)
[2021-10-25 15:49] LABS: INR 0.87 (0.8-1.2)
[2021-10-25 15:50] LABS: Partial Thromboplastin Time 25.6 SECONDS (23.9-36.7)
[2021-10-25 17:09] VITALS: BP 186/77; PULSE 85; O2SAT 97
--- NOTE | 2021-10-26 11:23 | DCPLANNER ---
Addendum entered by Tash Worthy 11/01/21 14:50: manager legal was told by the neurology clinic, that patients primary care physician Mayra Camejo, got patient into neuro in [place]. Original Note: manager legal had message to schedule a follow up appointment for patient with neurology. manager legal sent patients information to the front office staff at neurology. Patients information will be printed and reviewed. Clinic will call patient with appointment information.
== END 2021-10-25 17:11 | disposition home or self-care (01) ==
PROVIDERS: Emergency Medicine; Emergency Provider Family Medicine; PCP Nurse Practitioner
DX: G51.0 Bell's palsy (principal); I10 Essential (primary) hypertension; Z79.82 Long term (current) use of aspirin; Z79.02 Long term (current) use of antithrombotics/antiplatelets; Z87.891 Personal history of nicotine dependence
CPT/HCPCS: 70450; 80053; 85025; 85610; 85730; 93005; 99285

== ENCOUNTER 2022-01-24 14:52 | Outpatient (CLI) | payer OTHER, SELFPAY ==
--- NOTE | 2022-01-24 15:15 | USCV_ITS ---
Juanis Patel Age: 61 Gender: F : 1960 Exam Date: 01/24/2022 15:06 Ordering Phys: Nona Chau MD ([email or web address]) Technologist: Todd Tabares Exam Location: [facility] Indication: carotid stenosis Risk Factors: Previous Vascular Surgery: Right Brachial BP: / Left Brachial BP: / Right Left Velocity (cm/s) Spectral Plaque Velocity (cm/s) Spectral Plaque Syst/Diast Broadening Syst/Diast Broadening 82.50/ 19.70 Prox CCA 112.80/ 23.10 81.60/ 17.60 Mid CCA 71.80 / 21.40 61.10/ 17.70 Distal CCA 53.80 / 13.70 156.40/44.70 Prox ICA 122.70/ 28.00 132.80/35.50 Mid ICA 76.00 / 18.80 120.90/39.40 Distal ICA 84.60 / 28.20 114.70 ECA 278.00 1.63 ICA/CCA 1.06 Retrograde Vertebral Antegrade 32.90/ 13.10 cm/s 88.00/ 25.50 cm/s Tri Subclavian Bi 106.3 127.5 5 0 CONCLUSIONS Right ICA stenosis 50-69% progressed since 2019 Left ICA stenosis <50%. Prior left CEA. Retrograde Doppler flow noted in the right vertebral artery appears new from 2019. Right subclavian is patent Normal antegrade Doppler flow noted in the left vertebral artery. Terence Denis MD (Electronically Signed) Final Date: 24 January 2022 15:57 S
== END 2022-01-24 14:53 | disposition home or self-care (01) ==
PROVIDERS: PCP Nurse Practitioner Family; Visit Provider Internal Medicine Cardiovascular Disease
DX: I65.21 Occlusion and stenosis of right carotid artery (principal); Z98.890 Other specified postprocedural states
CPT/HCPCS: 93880

== ENCOUNTER 2022-08-05 17:40 | Emergency (ER) | payer OTHER, SELFPAY ==
[2022-08-05] VITALS (8 sets, daily range): BP systolic 153–201; BP diastolic 73–104; PULSE 62–81; RESP 14–19; TEMP 36.8; O2SAT 95–99
--- NOTE | 2022-08-05 18:16 | XRR_ITS ---
PROCEDURE INFORMATION: Exam: XR Chest Exam date and time: 08/05/2022 6:20 PM Age: 61 years old Clinical indication: Pain; Chest pressure; Additional info: Cp TECHNIQUE: Imaging protocol: Radiologic exam of the chest. Views: 1 view. COMPARISON: CR XR chest 1V portable [id number] 09/01/2020 12:36 PM FINDINGS: Lungs: Mild benign healed granulomatous disease. No focal infiltrate or consolidation. No pulmonary vascular congestion. Pleural spaces: Unremarkable. No pleural effusion. No pneumothorax. Heart/Mediastinum: Unremarkable. No cardiomegaly. Bones/joints: Unremarkable. Other findings: No significant change with prior exam. XR/XR chest 1V portable [id number] IMPRESSION: No acute cardiopulmonary abnormality.
--- NOTE | 2022-08-05 18:27 | ECG_ITS ---
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 Measurements Intervals [place] Rate: 70 P: 47 MS: 155 QRS: 29 QRSD: 107 T: 21 QT: 307 QTc: 333 Interpretive Statements SINUS RHYTHM POSSIBLE LEFT ATRIAL ENLARGEMENT [-0.1mV P-WAVE IN V1/V2] INCOMPLETE RIGHT BUNDLE BRANCH BLOCK [90+ ms QRS DURATION, TERMINAL R IN V1/V2, 40+ ms S IN I/aVL/V4/V5/V6] NONSPECIFIC ST & T-WAVE ABNORMALITY INTERPRETATION BASED ON A DEFAULT AGE OF 40 YEARS Compared to ECG 10/25/2021 13:20:05 Incomplete right bundle-branch block now present T-wave abnormality still present Electronically Signed On 08-06-2022 23:06:38 CDT by Smita Nayak M.D. [id number]
--- NOTE | 2022-08-05 19:08 | CTR_ITS ---
PROCEDURE INFORMATION: Exam: CTA Head With Contrast, Arteriography Exam date and time: 08/05/2022 7:40 PM Age: 61 years old Clinical indication: Dizziness and giddiness; Prior surgery; Surgery date: 6+ months; Surgery type: Prev carotid endarterectomy TECHNIQUE: Imaging protocol: Computed tomographic angiography of the head with contrast. Exam focused on the arteries. 3D rendering (Not supervised by radiologist): MIP and/or 3D reconstructed images were created by the technologist. Radiation optimization: All CT scans at this facility use at least one of these dose optimization techniques: automated exposure control; mA and/or kV adjustment per patient size (includes targeted exams where dose is matched to clinical indication); or iterative reconstruction. Contrast material: OMNI 350; Contrast volume: 100 ml; Contrast route: INTRAVENOUS (IV); REPORTING DATA: Count of CT and Cardiac NM exams in prior 12 months: This patient has received [address] and 0 known cardiac nuclear medicine studies in the 12 months prior to the current study. COMPARISON: CT head wo con* [id number] 10/25/2021 3:17 PM RADIATION DOSE METRICS: Total DLP (mGy-cm): 1154.32 FINDINGS: ANTERIOR CIRCULATION: Right internal carotid artery: Intracranial segment is patent with no significant stenosis. No aneurysm. Right middle cerebral artery: No occlusion or significant stenosis. No aneurysm. Right anterior cerebral artery: No occlusion or significant stenosis. No aneurysm. Left internal carotid artery: Intracranial segment is patent with no significant stenosis. No aneurysm. Left middle cerebral artery: No occlusion or significant stenosis. No aneurysm. Left anterior cerebral artery: No occlusion or significant stenosis. No aneurysm. POSTERIOR CIRCULATION: Right vertebral artery: Tiny caliber. No aneurysm. Left vertebral artery: Dominant left vertebral artery. No aneurysm. Basilar artery: No occlusion or significant stenosis. No aneurysm. Right posterior cerebral artery: No occlusion or significant stenosis. No aneurysm. Left posterior cerebral artery: No occlusion or significant stenosis. No aneurysm. Brain: No definite mass, mass effect, or midline shift. Cerebral ventricles: No ventriculomegaly. Bones/joints: Unremarkable. No acute fracture. Soft tissues: Unremarkable. Other findings: Mild vascular calcification of the intracranial internal carotid arteries. PROCEDURE INFORMATION: Exam: CTA Neck With Contrast Exam date and time: 08/05/2022 7:40 PM Age: 61 years old Clinical indication: Dizziness and giddiness; Prior surgery; Surgery date: 6+ months; Surgery type: Prev carotid endarterectomy TECHNIQUE: Imaging protocol: Computed tomographic angiography of the neck with contrast. 3D rendering (Not supervised by radiologist): MIP and/or 3D reconstructed images were created by the technologist. Radiation optimization: All CT scans at this facility use at least one of these dose optimization techniques: automated exposure control; mA and/or kV adjustment per patient size (includes targeted exams where dose is matched to clinical indication); or iterative reconstruction. Contrast material: OMNI 350; Contrast volume: 100 ml; Contrast route: INTRAVENOUS (IV); REPORTING DATA: Count of CT and Cardiac NM exams in prior 12 months: This patient has received [address] and 0 known cardiac nuclear medicine studies in the 12 months prior to the current study. COMPARISON: CT angio neck [id number] 10/04/2016 1:11 PM RADIATION DOSE METRICS: Total DLP (mGy-cm): 1154.32 FINDINGS: Right common carotid artery: Mild atherosclerotic calcification of the right carotid bulb and bifurcation. Right internal carotid artery: Suggestion 40-50% narrowing of the takeoff of the right internal carotid artery. Right external carotid artery: No occlusion or stenosis of the origin. Left common carotid artery: No stenosis. No dissection or occlusion. Left internal carotid artery: No stenosis of the extracranial segment. No dissection or occlusion. Left external carotid artery: No occlusion or stenosis of the origin. Right vertebral artery: Tiny caliber right vertebral artery. Left vertebral artery: Dominant left vertebral artery. Soft tissues: Normal. No significant soft tissue swelling. Postsurgical clips around the left carotid bifurcation region Bones/joints: No acute fracture. CT/CT angio headneck* [id number] IMPRESSION: 1. No acute intracranial abnormality. 2. Mild vascular calcification of the intracranial internal carotid arteries and tiny caliber of the right vertebral artery with a dominant left vertebral artery. 3. Exam is otherwise unremarkable. IMPRESSION: 1. Mild atherosclerotic calcification of the right carotid bulb and bifurcation, with suggestion of 40-50% narrowing at the takeoff of the right internal carotid artery. 2. Tiny caliber right vertebral artery with a dominant left vertebral artery. 3. Postsurgical clips at the level of the left carotid bifurcation. REFERENCES: NASCET CRITERIA. The degree of stenosis in the cervical segment of the internal carotid artery is based on NASCET criteria. Normal is no stenosis. Mild is less than 50% stenosis. Moderate is 50-69% stenosis. Severe is 70% to 99% stenosis. Total occlusion is no detectable patent lumen.
--- NOTE | 2022-08-05 19:11 | ED_ITS ---
HPI - Chest Pain General: Chief Complaint: Chest Pain Stated Complaint: BP issues, dizziness Time Seen by Provider: 08/05/22 18:53 Source: patient Mode of arrival: ambulatory Limitations: no limitations History of Present Illness: 61-year-old female history of carotid artery disease did have a carotid artery enterectomy roughly 5 years ago states that over last 4 months she has been having increasing anterior neck pain bilaterally. She states she was sick over the weekend with vomiting and states that her neck pain is worse and she is also had some dizziness states she has been hypertensive today as well her blood pressures in the 200s does have a history of hypertension she has been taking her meds. She denies any headaches states she has had some weakness but no focal deficits. Associated symptoms: Reports nausea and vomiting; Deny dyspnea or fever(s) Review of Systems Const: Denies: fever(s), chills, body aches or change in appetite Eyes: Denies: blurry vision or eye discomfort ENMT: Denies: throat pain or dental pain Card: Denies: chest pain Resp: Denies: dyspnea GI: Reports: nausea and vomiting : Denies: dysuria Musc: Reports: neck pain Skin/Breast: Denies: rash Neuro: Reports: dizziness Psych: Denies: depression Roscoe/Lymph: Denies: easy bruising All/Imm: Denies: urticaria PFSH ED PFSH: Medical History Carotid artery stenosis, asymptomatic Dyslipidemia HTN (hypertension) Surgical History H/O carotid endarterectomy Status post cervical polyp removal Family History Mother CAD (coronary artery disease) Father Stroke Family/Other CAD (coronary artery disease) Brother Stroke Sister Diabetes Other Cancer Social History Smoking and tobacco status: former smoker Second hand smoke exposure: No Alcohol intake: never Desire information about alcohol rehabilitation?: No Desire information about substance/drug rehabilitation?: No Physical Exam Const: COMMON NORMALS: no acute distress, patient oriented x3 and healthy appearing HENMT: COMMON NORMALS: normocephalic and atraumatic HEAD & SCALP: normocephalic and atraumatic Eye: COMMON NORMALS: Equal, round and reactive pupils present and EOMs intact bilaterally PUPIL: Yes Equal, round and reactive pupils present Neck/C-Spine: COMMON NORMALS: full ROM and supple Chest: COMMONS NORMALS: normal inspection of the chest and normal palpation of entire chest wall Resp: COMMON NORMALS: normal respiratory effort, No retractions, No use of accessory muscles and clear to auscultation bilaterally AUSCULTATION: clear to auscultation bilaterally Cardio: COMMON NORMALS: regular rate, regular rhythm and No murmurs present (Cardio) RATE: regular rate RHYTHM: regular rhythm GI: COMMON NORMALS: Normal to inspection, nondistended, normoactive bowel sounds present, Soft to palpation, non-tender and no masses PALPATION: Yes Soft to palpation Extremity: COMMON NORMALS: normal to inspection and full ROM Neuro: COMMON NORMALS: patient oriented x3, moves all extremities and no focal motor deficits Psych: COMMON NORMALS: mental status grossly normal, Normal thought process present and cooperative THOUGHT PROCESS: Normal thought process present Skin: COMMON NORMALS: no rashes or lesions noted and no wounds GENERAL SKIN EXAM: no rashes or lesions noted Course Vital Signs: Vital signs: Vital Signs Temperature 98.3 F 08/05/22 18:06 Pulse Rate 79 08/05/22 21:12 Respiratory Rate 15 08/05/22 21:12 Blood Pressure 153/73 08/05/22 21:12 Pulse Oximetry 96 08/05/22 21:12 Oxygen Delivery Me thod 08/05/22 21:00 MDM - Chest Pain Medical Decision Making Patient presents here with neck pain history of carotid stenosis CTA of her neck showed no increase stenosis today she feels improved here after blood pressure is improved troponins are normal she is stable for discharge she is to follow-up with PCP she is to take a log of her blood pressure as well to see if it is consistently staying high and she is to follow-up with Dr. Jackson as well she is to return if worsening she understands agrees to plan. Lab Data 08/05/22 18:47 08/05/22 18:47 Radiology Impressions Chest X-Ray 08/05/22 18:16 IMPRESSION: No acute cardiopulmonary abnormality. Head/Neck CTA 08/05/22 19:08 IMPRESSION: 1. No acute intracranial abnormality. 2. Mild vascular calcification of the intracranial internal carotid arteries and tiny caliber of the right vertebral artery with a dominant left vertebral artery. 3. Exam is otherwise unremarkable. IMPRESSION: 1. Mild atherosclerotic calcification of the right carotid bulb and bifurcation, with suggestion of 40-50% narrowing at the takeoff of the right internal carotid artery. 2. Tiny caliber right vertebral artery with a dominant left vertebral artery. 3. Postsurgical clips at the level of the left carotid bifurcation. REFERENCES: NASCET CRITERIA. The degree of stenosis in the cervical segment of the internal carotid artery is based on NASCET criteria. Normal is no stenosis. Mild is less than 50% stenosis. Moderate is 50-69% stenosis. Severe is 70% to 99% stenosis. Total occlusion is no detectable patent lumen. Laboratory Results WBC 11.4 10^3/uL (4.0-10.0) H 08/05/22 18:47 RBC 5.41 10^6/uL (4.1-5.3) H 08/05/22 18:47 Hgb 15.1 g/dL (11.5-15.3) 08/05/22 18:47 Hct 46.6 % (37.0-47.0) 08/05/22 18:47 MCV 86.1 fl (81-99) 08/05/22 18:47 MCH 27.9 pg (28.0-34.0) L 08/05/22 18:47 MCHC 32.4 g/dL (30.0-36.0) 08/05/22 18:47 RDW 13.2 % (12.1-15.1) 08/05/22 18:47 Plt Count 226 10^3/cmm (130-400) 08/05/22 18:47 MPV 12.2 fL (7.4-10.4) H 08/05/22 18:47 Neut % (Auto) 69.3 % 08/05/22 18:47 Lymph % (Auto) 17.8 % 08/05/22 18:47 Louisa % (Auto) 9.1 % 08/05/22 18:47 Eos % (Auto) 3.0 % 08/05/22 18:47 Baso % (Auto) 0.4 % 08/05/22 18:47 Neut # (Auto) 7.92 10^3/uL (1.8-7.7) H 08/05/22 18:47 Lymph # (Auto) 2.0 10^3/uL (0.8-4.8) 08/05/22 18:47 Louisa # (Auto) 1.0 10^3/uL (0.2-0.9) H 08/05/22 18:47 Eos # (Auto) 0.3 10^3/uL (0.0-0.8) 08/05/22 18:47 Baso # (Auto) 0.1 10^3/uL (0.0-0.1) 08/05/22 18:47 Nucleated RBC % (auto) 0 % 08/05/22 18: Nucleated RBCs # 0.0 /100WBC 08/05/22 18:47 PT 11.80 SECONDS (12.1-14.9) L 08/05/22 18:47 INR 0.85 (0.8-1.2) 08/05/22 18:47 Sodium 139 mmol/L (136-145) 08/05/22 18:47 Potassium 3.7 mmol/L (3.5-5.1) 08/05/22 18:47 Chloride 99 mmol/L (98-107) 08/05/22 18:47 Carbon Dioxide 28 mmol/L (22-29) 08/05/22 18:47 Anion Gap 15.7 (5-19) 08/05/22 18:47 BUN 12 mg/dL (8-23) 08/05/22 18:47 Creatinine 0.8 mg/dL (0.5-0.9) 08/05/22 18:47 GFR Calculation 73.2 mL/min (90-130) L 08/05/22 18:47 Glucose 97 mg/dL (65-115) 08/05/22 18:47 Calculated Osmolality 288 mOsm/kg (285-295) 08/05/22 18:47 Calcium 9.8 mg/dL (8.5-10.5) 08/05/22 18:47 Total Bilirubin 0.4 mg/dL (0.15-1.2) 08/05/22 18:47 AST 17 U/L (0-32) 08/05/22 18:47 ALT 21 U/L (0-33) 08/05/22 18:47 Alkaline Phosphatase 96 U/L (35-105) 08/05/22 18:47 Troponin T Baseline 6 ng/L (0-10) 08/05/22 18:47 Troponin T 120 Minute 6.00 ng/L (0-10) 08/05/22 20:25 Total Protein 7.7 g/dL (6.6-8.7) 08/05/22 18:47 Albumin 4.9 g/dL (3.5-5.2) 08/05/22 18:47 Globulin 2.8 g/dL (1.3-4.6) 08/05/22 18:47 EKG Data EKG 2: I personally reviewed and interpreted this EKG as follows: EKG interpretation date: 08/05/22 EKG interpretation time: 20:29 Interpretation: nsr hr [address] or t wave abnormalities qrs 106 qtc 310 Discharge Plan Discharge Patient Disposition: Home Clinical Impression: Chest pain, Hypertension, Neck pain Condition: Stable Prescriptions: No Action clonidine HCl 0.1 mg tablet 0.1 mg PO BID PRN (Reason: hypertensive emergency) atorvastatin 10 mg tablet 10 mg PO DAILY Qty: 90 1RF clopidogrel 75 mg tablet 75 mg PO DAILY Qty: 7 0RF Rx Instructions: TAKE 4 TABS PM BEFORE PROCEDURE AND 1 TAB AM OF PROCEDURE multivitamin Tablet 1 tab PO DAILY hydrochlorothiazide 12.5 mg tablet 12.5 mg PO DAILY Qty: 30 3RF aspirin [Kelsy Chewable Aspirin] 81 mg tablet,chewable 81 mg PO DAILY Qty: 30 0RF amlodipine 10 mg tablet 10 mg PO DAILY Qty: 30 3RF acyclovir 400 mg tablet 800 mg PO BID Discharge Orders: Discharge ED (Routine); Ordered 08/05/22 Ordered By: Luis M Hinojosa Referrals: Camejo,RENETTA VincentP [Primary Care Provider] - Discharge Diet: Advance as tolerated Discharge Activity: Resume usual activity Patient Instructions: Chest Pain (ED), Hypertension (ED) Coding Level of Care Code ED [employer] Operator for Alyx Khanna
[2022-08-05 19:15] LABS: INR 0.85 (0.8-1.2)
[2022-08-05] MEDS: hyDRALAzine 20 mg/mL INJ 1 mL 10 MG IVP ×2 (19:15→20:34)
[2022-08-05 19:22] LABS: Alanine Aminotransferase 21 U/L (0-33); Albumin Level 4.9 g/dL (3.5-5.2); Alkaline Phosphatase 96 U/L (35-105); Anion Gap 15.7 (5-19); Aspartate Amino Transferase 17 U/L (0-32); Blood Urea Nitrogen 12 mg/dL (8-23); Calcium 9.8 mg/dL (8.5-10.5); Carbon Dioxide 28 mmol/L (22-29); Chloride 99 mmol/L (98-107); Globulin 2.8 g/dL (1.3-4.6); Glomerular Filtration Rate 73.2 mL/min (90-130); Glucose 97 mg/dL (65-115); Osmolality Calculated 288 mOsm/kg (285-295); Potassium 3.7 mmol/L (3.5-5.1); Sodium 139 mmol/L (136-145); Total Bilirubin 0.4 mg/dL (0.15-1.2); Total Protein 7.7 g/dL (6.6-8.7)
[2022-08-05 19:27] LABS: Troponin(5th) Baseline 6 ng/L (0-10)
[2022-08-05] MEDS: iohexol 350 mg/mL 500 mL Btl (per mL) IV (19:47)
[2022-08-05 20:05] LABS: Basophils # 0.1 10^3/uL (0.0-0.1); Basophils % 0.4 %; Eosinophils # 0.3 10^3/uL (0.0-0.8); Hematocrit 46.6 % (37.0-47.0); Hemoglobin 15.1 g/dL (11.5-15.3); Lymphocytes % 17.8 %; Mean Corpuscular HGB Conc 32.4 g/dL (30.0-36.0); Mean Corpuscular Hemoglobin 27.9 pg (28.0-34.0); Mean Corpuscular Volume 86.1 fl (81-99); Mean Platelet Volume 12.2 fL (7.4-10.4); Monocytes % 9.1 %; Neutrophils # 7.92 10^3/uL (1.8-7.7); Neutrophils % 69.3 %; Nucleated Red Blood Cells % 0 %; Platelet Count 226 10^3/cmm (130-400); Red Blood Count 5.41 10^6/uL (4.1-5.3); Red Cell Distribution Width 13.2 % (12.1-15.1); White Blood Count 11.4 10^3/uL (4.0-10.0)
--- NOTE | 2022-08-05 20:29 | ECG_ITS ---
[facility] Test Date: 2022-08-05 Pat Name: Juanis Patel Department: Room: Gender: Female Cat Operator: : 1960 Requested By: Luis M Hinojosa Order Number: [id number] Reading MD: Smita Nayak M.D. Measurements Intervals [place] Rate: 63 P: 70 TN: 162 QRS: 63 QRSD: 106 T: 57 QT: 302 QTc: 311 Interpretive Statements SINUS RHYTHM POSSIBLE RIGHT VENTRICULAR CONDUCTION DELAY [RSR (QR) IN V1/V2] NONSPECIFIC T-WAVE ABNORMALITY Compared to ECG 08/05/2022 18:27:28 Incomplete right bundle-branch block no longer present T-wave abnormality still present Electronically Signed On 08-06-2022 23:14:26 CDT by Smita Nayak M.D. [email or web address]
[2022-08-05 21:32] LABS: Troponin 5 2HR Delta 0 ABS# (0-10)
== END 2022-08-05 21:21 | disposition home or self-care (01) ==
PROVIDERS: Emergency Provider Emergency Medicine; PCP Nurse Practitioner Family
DX: M54.2 Cervicalgia (principal); I10 Essential (primary) hypertension; R07.9 Chest pain, unspecified; Z79.82 Long term (current) use of aspirin; Z79.02 Long term (current) use of antithrombotics/antiplatelets; Z87.891 Personal history of nicotine dependence; E78.5 Hyperlipidemia, unspecified
CPT/HCPCS: 36415; 70496; 70498; 71045; 80053; 84484; 85025; 85610; 93005; 96374; 96375; 99285; J0360; Q9967

== ENCOUNTER 2022-08-29 11:40 | Outpatient (CLI) | payer OTHER, SELFPAY ==
--- NOTE | 2022-08-29 11:56 | MM_ITS ---
WS: [id number] BILATERAL SCREENING DIGITAL TOMOSYNTHESIS MAMMOGRAM WITH CAD HISTORY: SCREENING COMPARISON: None available. Bilateral CC and MLO views with tomosynthesis and synthetic mammography submitted. Computer aided det ection analyzed. Breast composition: There are scattered areas of fibroglandular density. No suspicious masses, microc alcifications or architectural distortion. MM/[place] [id number] IMPRESSION: BI-RADS: 1-Negative FOLLOW UP: 1 Year Follow-up
== END 2022-08-29 11:41 | disposition home or self-care (01) ==
LOC: RAD 11:45
PROVIDERS: PCP Nurse Practitioner Family; Visit Provider Nurse Practitioner Family
DX: Z12.31 Encounter for screening mammogram for malignant neoplasm of breast (principal)
CPT/HCPCS: 77063; 77067

== ENCOUNTER 2023-06-10 14:43 | Outpatient (CLI) | payer OTHER, SELFPAY ==
--- NOTE | 2023-06-10 14:49 | XR_ITS ---
WS: [id number] XR sacrum coccyx min 2V [id number] REASON FOR EXAM: LOW BACK PAIN FINDINGS: Sacrum and coccyx are intact without fracture or dislocation. Pelvic calcification compatible with uterine leiomyoma. No other abnormality. IMPRESSION: No acute abnormality.
--- NOTE | 2023-06-10 14:50 | XR_ITS ---
WS: [id number] XR lumbar spine min 4V [id number] REASON FOR EXAM: LUMBAR SPINE PAIN FINDINGS: 5 lumbar vertebrae with rudimentary disc formation at S1-S2. Mild rotatory scoliosis of the lumbar spine convex right. Mild straightening of the lumbar lordosis. Chronic appearing mild compression deformities T11-L1. There is deformity of the superior endplate of L2 which more likely is chronic however a subacute com pression fracture is not readily excluded. Intervertebral disc spaces are intact and relatively well preserved. No significant neutral listhesis. No significant vertebral body shift with flexion and extension. IMPRESSION: Mild changes of degenerative spondylosis. Old compression deformities. Question age of the L2 endplate compression as above.
== END 2023-06-10 14:44 | disposition home or self-care (01) ==
LOC: RAD 14:44
PROVIDERS: PCP Nurse Practitioner Family; Visit Provider Nurse Practitioner Family
DX: S39.92XA Unspecified injury of lower back, initial encounter (principal); X58.XXXA Exposure to other specified factors, initial encounter; M47.816 Spondylosis without myelopathy or radiculopathy, lumbar region; M43.8X6 Other specified deforming dorsopathies, lumbar region
CPT/HCPCS: 72110; 72220

== ENCOUNTER 2023-07-21 12:38 | Outpatient (CLI) | payer OTHER, SELFPAY ==
--- NOTE | 2023-07-21 12:43 | XR_ITS ---
WS: [id number] DEXA (DUAL ENERGY X-RAY ABSORPTIOMETRY) Bone mineral density was performed using a [employer] machine. HISTORY: ASYMPTOMATIC MENOPAUSAL STATE COMPARISON: None available. Left forearm BMD: 0.876 g/cm2. T score: 0.0 Z score: 1.0 Total hip BMD: Left: 0.977 g/cm2. T score: -0.2 Z score: 0.0 Right: 0.982 g/cm2. T score: -0.2 Z score: 0.0 10 year probability of a major osteoporotic fracture is 6.8%. IMPRESSION: NORMAL BONE MINERAL DENSITY based upon the WHO classification for females.
== END 2023-07-21 12:39 | disposition home or self-care (01) ==
LOC: RAD 12:39
PROVIDERS: PCP Nurse Practitioner Family; Visit Provider Nurse Practitioner Family
DX: Z78.0 Asymptomatic menopausal state (principal)
CPT/HCPCS: 77080